=== PATIENT | female | born 1990 | race Caucasian/White ===

== ENCOUNTER 2024-03-18 12:32 | Outpatient (CLI) | payer OTHER, SELFPAY ==
[2024-03-18 13:30] LABS: Basophils Absolute Auto 0.1 K/mm3 (0.0-0.1); Basophils Percent Auto 0.5 % (0.2-1.2); Eosinophils Absolute Auto 0.2 K/mm3 (0-0.3); Eosinophils Percent Auto 1.5 % (0-4.4); Hematocrit 41.8 % (37.0-47.0); Hemoglobin 14.7 g/dL (12.0-15.0); Immature Granulocyte Absolute 0.04 K/mm3 (0.00-0.031); Immature Granulocyte Percent A 0.4 % (0-0.5); Lymphocytes Absolute Auto 3.79 K/mm3 (0.9-3.2); Lymphocytes Percent Auto 34.5 % (18.3-44.2); Mean Corpuscular HGB Conc 35.2 g/dl (32-36); Mean Corpuscular Hemoglobin 33.6 pg (26-34); Mean Corpuscular Volume 95.7 fl (80-100); Mean Platelet Volume 10.7 fl (7.4-10.4); Monocytes Absolute Auto 1.1 K/mm3 (0.1-0.6); Monocytes Percent Auto 9.7 % (2.6-8.5); Neutrophils Absolute Auto 5.9 K/mm3 (1.3-6.7); Neutrophils Percent Auto 53.4 % (45.5-73.1); Platelet Count Result 253 k/mm3 (150-375); Red Blood Count 4.37 M/mm3 (4.2-5.4); Red Cell Distribution Width 12.3 % (11.5-14.5)
[2024-03-18 13:42] LABS: Alanine Aminotransferase 110 U/L (6-35); Albumin Level 4.4 g/dL (3.5-5.1); Alkaline Phosphatase 81 U/L (38-126); Anion Gap 11 mmol/L (4-12); Aspartate Amino Transferase 58 U/L (14-36); Bilirubin,Total 1.2 mg/dL (0.2-1.3); Blood Urea Nitrogen 16 mg/dL (7-17); Calcium 9.4 mg/dL (8.4-10.2); Carbon Dioxide 23 mmol/L (22-30); Chloride 104 mmol/L (98-107); Cholesterol 180 mg/dL (0-200); Estimated Glomerular Filt Rate 58; Glucose 103 mg/dL (65-110); HDL Direct 40 mg/dL; Potassium 3.5 mmol/L (3.4-5.0); Sodium 138 mmol/L (137-145); Triglycerides 133 mg/dL (<150)
[2024-03-18 13:53] LABS: LDL Cholesterol Direct 121 mg/dL
[2024-03-18 14:21] LABS: Hepatitis B Surface Antigen Negative (Negative)
[2024-03-18 14:22] LABS: HIV 1/2 Ab P24 Ag Result Negative (Negative)
[2024-03-18 14:40] LABS: Hepatitis C Virus Antibody Reactive (Negative)
[2024-03-20 12:53] LABS: Hemoglobin A1C 5.3 % (<5.7)
[2024-03-20 15:29] LABS: Hepatitis C RNA, Quant PCR 6090000 IU/mL (NOT DETECTED)
[2024-03-28 01:09] LABS: Treponema pallidum Ab FTA ABS REACTIVE
== END 2024-03-18 12:33 | disposition home or self-care (01) ==
LOC: ANHLAB 12:39
PROVIDERS: Visit Provider Nurse Practitioner Family
DX: Z20.9 Contact with and (suspected) exposure to unspecified communicable disease (principal); Z13.1 Encounter for screening for diabetes mellitus; Z13.0 Encounter for screening for diseases of the blood and blood-forming organs and certain disorders involving the immune mechanism; Z13.220 Encounter for screening for lipoid disorders; Z13.228 Encounter for screening for other metabolic disorders; Z13.29 Encounter for screening for other suspected endocrine disorder
CPT/HCPCS: 36415; 80053; 80061; 83036; 84443; 85025; 86703; 86780; 86803; 87340; 87522; G0432